=== PATIENT | female | born 1965 | race Caucasian/White ===

== ENCOUNTER 2018-08-22 08:15 | Day surgery (SDC) | payer MEDICAID ==
[~2018-08-22 08:15] MED LIST: LIDOCAINE 2% (SDV) 5 ML INJ
[2018-08-22] MEDS ORDERED: ISOSULFAN BLUE 1% 5 ML INJ SC (12:50)
[2018-08-22] MEDS ORDERED: FENTAnyl 50 MCG/ML VIAL ×2 (13:37→14:58)
[2018-08-22] MEDS ORDERED: CEFAZOLIN 1 GM INJ (14:04)
[2018-08-22] MEDS ORDERED: ROCURONIUM 50 MG INJ (14:04)
[2018-08-22] MEDS ORDERED: PROPOFOL 20 ML (14:04)
[2018-08-22] MEDS ORDERED: GLYCOPYRROLATE 0.4 MG INJ (14:04)
[2018-08-22] MEDS ORDERED: NEOSTIGMINE 3 MG/3 ML SYRINGE (14:04)
[2018-08-22] MEDS ORDERED: NORepinephrine 4 MG INJ (14:04)
[2018-08-22] MEDS ORDERED: SUCCINYLCHOLINE CHLORIDE 100 MG/5 ML SYG IV (14:04)
[2018-08-22] MEDS ORDERED: HYDROCODONE/APAP (7.5/325) TAB PO (14:30)
[2018-08-22] MEDS ORDERED: PROVENTIL HFA 6.7GM INHALER (14:33)
[2018-08-22] MEDS ORDERED: MEPERIDINE 25 MG INJ IV (15:00)
[2018-08-22] MEDS ORDERED: HYDROmorphONE 1 MG/5 ML IV SYRINGE IV ×2 (15:00)
[2018-08-22] MEDS ORDERED: LABETALOL HCL 20MG INJ IV (15:00)
[2018-08-22] MEDS ORDERED: FENTAnyl 50 MCG/ML VIAL IV (15:00)
[2018-08-22] MEDS: FENTAnyl 50 MCG/ML VIAL IV (15:13)
[2018-08-22] MEDS: ONDANSETRON 4 MG INJ IV ×2 (15:40→16:17)
== END 2018-08-22 17:13 | disposition home or self-care (01) ==
LOC: SDS 08:15
DX: D05.12 Intraductal carcinoma in situ of left breast (principal); E11.9 Type 2 diabetes mellitus without complications; J45.909 Unspecified asthma, uncomplicated
CPT/HCPCS: 19301; 71045; 82962; 88307; 93005